=== PATIENT | male | born 1995 | race Two or more races ===

== ENCOUNTER 2019-08-23 23:39 | Emergency (ER) | payer MEDICAID ==
[~2019-08-23] VITALS: Ht 167.6 cm; Wt 86.4 kg
[2019-08-24] MEDS ORDERED: LIDOCAINE/PF 1% 2 ML VIAL IM ONE (02:45)
[2019-08-24] MEDS ORDERED: DOXYCYCLINE HYCLATE 100 MG CAPSULE PO ONE (02:45)
[2019-08-24] MEDS ORDERED: HYDROGEN PEROXIDE 118 ML SOLUTION TP ONE (02:45)
[2019-08-24] MEDS ORDERED: CefTRIAXone SODIUM 1 GM/VIAL IM ONE (02:45)
[2019-08-24] MEDS ORDERED: PERTUSS(ACELL),DIPH,TET VAC/PF 0.5 ML VIAL IM ONE (03:45)
[2019-08-24 03:52] VITALS: BP 136/62
== END 2019-08-24 03:59 | disposition home or self-care (01) ==
LOC: EMS 23:39
DX: L97.929 Non-pressure chronic ulcer of unspecified part of left lower leg with unspecified severity (principal); L03.116 Cellulitis of left lower limb; F19.90 Other psychoactive substance use, unspecified, uncomplicated
CPT/HCPCS: 90471; 90715; 96372; 99283; J0696; J3490